=== PATIENT | male | born 1950 | race African-American/Black ===

== ENCOUNTER 2017-03-11 08:07 | Emergency (ER) | payer MEDICARE, OTHER ==
[~2017-03-11] VITALS: Ht 165.1 cm; Wt 102.0 kg
[~2017-03-11 08:07] MED LIST: ASPI-1035 PO; ATEN50TA PO; ATOR10TA69 PO; HYDR25TA PO; METF10002 PO; NIFE30TA94 PO
[2017-03-11 08:13] VITALS: BP 175/88
== END 2017-03-11 10:13 | disposition home or self-care (01) ==
LOC: ER 08:59
DX: S63.502A Unspecified sprain of left wrist, initial encounter (principal); I10 Essential (primary) hypertension; E11.9 Type 2 diabetes mellitus without complications; F17.210 Nicotine dependence, cigarettes, uncomplicated; X58.XXXA Exposure to other specified factors, initial encounter; Y92.018 Other place in single-family (private) house as the place of occurrence of the external cause
CPT/HCPCS: 29125; 73110; 99284

== ENCOUNTER 2018-01-18 12:47 | Emergency (ER) | payer MEDICARE, OTHER ==
[~2018-01-18] VITALS: Ht 165.1 cm; Wt 102.0 kg
[~2018-01-18 12:47] MED LIST changes: -ASPI-1035 PO; +ASPI-1159 PO
[2018-01-18] MEDS ORDERED: PREDNISONE 20MG TABLET PO STA (18:50)
[2018-01-18] MEDS ORDERED: ALBUTEROL (0.083%) 2.5MG/3ML NEB HHN STA (18:50)
[2018-01-18] MEDS ORDERED: IPRATROPIUM BROMIDE (0.02%) 0.5MG/2.5ML NEB HHN STA (18:50)
[2018-01-18] MEDS ORDERED: ALBUTEROL (0.5%) 2.5MG/0.5ML NEB HHN ONE (19:34)
[2018-01-18 20:58] VITALS: BP 176/81
== END 2018-01-18 21:15 | disposition home or self-care (01) ==
LOC: ER 14:27
DX: H61.22 Impacted cerumen, left ear (principal); J06.9 Acute upper respiratory infection, unspecified; I10 Essential (primary) hypertension; E11.9 Type 2 diabetes mellitus without complications; E78.00 Pure hypercholesterolemia, unspecified; F17.200 Nicotine dependence, unspecified, uncomplicated; Z79.82 Long term (current) use of aspirin
CPT/HCPCS: 69209; 71045; 94640; 99283; J7611

== ENCOUNTER 2019-11-14 09:51 | Emergency (ER) | payer MEDICARE, OTHER ==
[~2019-11-14] VITALS: Ht 175.3 cm; Wt 113.0 kg
[~2019-11-14 09:51] MED LIST changes: -ASPI-1159 PO; +ASPI-1393 PO; +METF-416 PO; -METF10002 PO
[2019-11-14 10:33] LABS: BASOPHILS % 1.3 % (0.0-2.0); EOSINOPHILS % 1.3 % (0.0-5.0); HEMATOCRIT. 40.8 % (42.0-52.0); HEMOGLOBIN. 13.8 g/dL (14.0-18.0); LYMPHOCYTES % 23.4 % (20.0-50.0); MEAN CORPUSCULAR HEMOGLOBIN 30.6 pg (28.0-32.0); MEAN CORPUSCULAR VOLUME 90.3 fL (80.0-94.0); MEAN PLATELET VOLUME 8.4 fl (7.4-10.4); MONOCYTES % 11.3 % (2.0-8.0); NEUTROPHILS % 62.7 % (40.0-76.0); PLATELET 284 x1000/uL (130-400); RED BLOOD CELL COUNT 4.52 mill/uL (4.7-6.1)
[2019-11-14 10:41] LABS: INR 1.1; PROTHROMBIN TIME 11.6 sec (9.6-11.0)
[2019-11-14 10:50] LABS: CHLORIDE 104 mEq/L (98-107)
[2019-11-14 10:55] LABS: ETHANOL BLOOD < 10 mg/dL
[2019-11-14] MEDS ORDERED: MAGNESIUM/ALUMINUM HYDROXIDE/SIMETHICONE 30ML UDC PO ONE (12:45)
[2019-11-14] MEDS ORDERED: DICYCLOMINE 10 MG/5 ML ORAL SYR PO ONE (12:45)
[2019-11-14] MEDS ORDERED: VISCOUS LIDOCAINE 2% 15 ML UDC PO ONE (12:45)
[2019-11-14] MEDS ORDERED: AMLODIPINE 5MG TABLET PO ONE (13:15)
[2019-11-14] MEDS ORDERED: ASPIRIN 325MG TABLET PO ONE (13:15)
[2019-11-14 19:30] VITALS: BP 177/69
== END 2019-11-14 21:08 | disposition short-term general hospital (02) ==
LOC: ER 09:51 → CANBEDREQ 20:07 → ER 21:08
DX: I10 Essential (primary) hypertension (principal); R42 Dizziness and giddiness; E11.9 Type 2 diabetes mellitus without complications; E78.00 Pure hypercholesterolemia, unspecified; F17.290 Nicotine dependence, other tobacco product, uncomplicated; Z79.82 Long term (current) use of aspirin; Z79.899 Other long term (current) drug therapy
CPT/HCPCS: 36415; 71045; 74018; 80320; 84484; 93005; 99285; 99406; G0480

== ENCOUNTER 2021-10-07 00:36 | Emergency (ER) | payer MEDICARE, OTHER ==
[~2021-10-07] VITALS: Ht 165.1 cm; Wt 88.0 kg
[~2021-10-07 00:36] MED LIST changes: -ASPI-1393 PO; +ASPI-1497 PO
[2021-10-07] MEDS ORDERED: AMLODIPINE 5MG TABLET PO ONE (02:15)
[2021-10-07] MEDS ORDERED: ATENOLOL 25MG TABLET PO ONE (02:15)
[2021-10-07 02:25] LABS: BASOPHILS % 1.3 % (0.0-2.0); EOSINOPHILS % 1.8 % (0.0-5.0); HEMATOCRIT. 36.7 % (42.0-52.0); HEMOGLOBIN. 12.4 g/dL (14.0-18.0); MEAN CORPUSCULAR HEMOGLOBIN 29.9 pg (28.0-32.0); MEAN CORPUSCULAR VOLUME 88.8 fL (80.0-94.0); MEAN PLATELET VOLUME 8.5 fl (7.4-10.4); NEUTROPHILS % 65.9 % (40.0-76.0); PLATELET 389 x1000/uL (130-400); RED BLOOD CELL COUNT 4.14 mill/uL (4.7-6.1); RED CELL DISTRIBUTION WIDTH 16.4 % (11.6-14.6)
[2021-10-07 02:27] LABS: CHLORIDE 109 mEq/L (98-107)
[2021-10-07] MEDS ORDERED: CLONIDINE 0.1MG TABLET PO ONE (04:15)
[2021-10-07 04:24] VITALS: BP 191/79
== END 2021-10-07 04:32 | disposition home or self-care (01) ==
LOC: ER 00:36
DX: I16.0 Hypertensive urgency (principal); E11.9 Type 2 diabetes mellitus without complications; E78.00 Pure hypercholesterolemia, unspecified; Z79.84 Long term (current) use of oral hypoglycemic drugs; Z87.442 Personal history of urinary calculi; Z79.82 Long term (current) use of aspirin
CPT/HCPCS: 36415; 80053; 85025; 93005; 99285

== ENCOUNTER 2022-12-19 12:29 | Emergency (ER) | payer MEDICARE, MEDICAID ==
[~2022-12-19] VITALS: Ht 165.1 cm; Wt 89.0 kg
[2022-12-19] MEDS ORDERED: SODIUM CHLORIDE 0.9% 1,000 ML IV ONE (13:15)
[2022-12-19] MEDS ORDERED: KETOROLAC 15MG/ML VIAL IV ONE (13:15)
[2022-12-19 14:00] VITALS: BP 136/76
[2022-12-19 14:03] LABS: BASOPHILS % 1.2 % (0.0-2.0); EOSINOPHILS % 2.3 % (0.0-5.0); HEMOGLOBIN. 12.3 g/dL (14.0-18.0); LYMPHOCYTES % 28.9 % (20.0-50.0); MEAN CORPUSCULAR HEMOGLOBIN 29.7 pg (28.0-32.0); MEAN CORPUSCULAR VOLUME 87.1 fL (80.0-94.0); MEAN PLATELET VOLUME 8.4 fl (7.4-10.4); MONOCYTES % 8.9 % (2.0-8.0); NEUTROPHILS % 58.7 % (40.0-76.0); PLATELET 336 x1000/uL (130-400); RED BLOOD CELL COUNT 4.13 mill/uL (4.7-6.1); RED CELL DISTRIBUTION WIDTH 15.3 % (11.6-14.6)
[2022-12-19] MEDS ORDERED: LIDOCAINE HCL/PF 1% 10 MG/ML 5ML VIAL INFIL ONE (15:00)
[2022-12-19] MEDS ORDERED: BACITRACIN ZINC OINT UDPKT TOP ONE (15:00)
[2022-12-19] MEDS ORDERED: PIPERACILLIN/TAZ 3.375G PREMIX 50 ML IV ONE (16:00)
[2022-12-19] MEDS ORDERED: VANCOMYCIN 1G PREMIX 200 ML IV ONE (16:00)
[2022-12-19] MEDS ORDERED: CEPH500C2 MT (16:05)
[2022-12-19] MEDS ORDERED: SULF1TAB48 MT (16:05)
== END 2022-12-19 17:00 | disposition left against medical advice (07) ==
LOC: ER 12:29
DX: M70.32 Other bursitis of elbow, left elbow (principal); E11.9 Type 2 diabetes mellitus without complications; I10 Essential (primary) hypertension; E78.00 Pure hypercholesterolemia, unspecified; Z79.84 Long term (current) use of oral hypoglycemic drugs; Z79.82 Long term (current) use of aspirin
CPT/HCPCS: 36415; 73200; 80048; 85025; 87040; 87070; 87077; 87186; 87205; 96361; 96365; 96367; 96375; 99285; J1885; J2543; J3370; J3490; J7030